=== PATIENT | male | born 1970 ===

== ENCOUNTER 2016-11-16 15:04 | Emergency (ER) | payer OTHER ==
[2016-11-16 15:11] VITALS: PULSE 100; RESP 20; TEMP 98.4; O2SAT 97
[2016-11-16 15:12] VITALS: BP 152/99
[2016-11-16] MEDS ORDERED: Lidocaine 5% Patch TD STA (15:25)
[2016-11-16] MEDS ORDERED: Lidocaine 5% Patch TD ONE (15:31)
--- NOTE | 2016-11-16 15:47 | C.PDOC ---
History Of Present Illness 46 y/o male presents to ED with complaint of lower back pain for 6 days. Patient reports heavy lifting at work. Otherwise, patient denies headache, neck pain, abdominal pain, nausea, vomiting, dysuria, hematuria, urinary or bowel incontinence, new extremity weakness, new extremity numbness, or associated symptoms. Time Seen by Provider: 11/16/16 15:19 Chief Complaint (Nursing): Back Pain History Per: Patient History/Exam Limitations: no limitations Onset/Duration Of Symptoms: Days Current Symptoms Are (Timing): Still Present Previous Symptoms: None Associated Symptoms: denies: New Weakness, New Numbness Recent travel outside of the [place]: No Past Medical History Reviewed: Historical Data, Nursing Documentation, Vital Signs Vital Signs: Last Vital Signs Temp 98.4 F 11/16/16 15:08 Pulse 100 H 11/16/16 15:08 Resp 20 11/16/16 15:08 BP 152/99 H 11/16/16 15:08 Pulse Ox 97 11/16/16 16:55 Family History: States: Unknown Family Hx - Social History Hx Alcohol Use: No Hx Substance Use: No Review Of Systems Except As Marked, All Systems Reviewed And Found Negative. Constitutional: Negative for: Fever, Chills Cardiovascular: Negative for: Chest Pain Respiratory: Negative for: Shortness of Breath Gastrointestinal: Negative for: Nausea, Vomiting Musculoskeletal: Positive for: Back Pain Skin: Negative for: Rash Neurological: Negative for: Weakness, Numbness Physical Exam - Physical Exam Appears: Non-toxic, No Acute Distress Skin: Normal Color, Warm, Dry Head: Atraumatic, Normacephalic Neck: No Midline Cervical Tenderness, No Paracervical Tenderness, Supple Chest: Symmetrical Cardiovascular: Rhythm Regular Respiratory: Normal Breath Sounds, No Rales, No Rhonchi, No Wheezing Gastrointestinal/Abdominal: Soft, No Tenderness Back: No Vertebral Tenderness, Muscle Spasm (right), Paraspinal Tenderness ( lumbar) Extremity: Normal ROM, Capillary Refill (< 2 sec. ) Neurological/Psych: Oriented x3, Normal Speech, Normal Cognition, Normal Motor, Normal Sensation ED Course And Treatment O2 Sat by Pulse Oximetry: 97 Pulse Ox Interpretation: Normal Medical Decision Making Medical Decision Makin46 y/o male with lower back pain s/p heavy lifting at work. Treated with Flexeril, Lidoderm patch, and Motrin. On reassessment, patient is in no acute distress, with improvement of back pain. Patient has no bony tenderness, extremity numbness or weakness, or abdominal pain. Patient is ambulatory in the emergency department without difficulty. Patient was advised to follow up with PMD/clinic in 1-2 days. Disposition Counseled Patient/Family Regarding: Need For Followup, Rx Given - Disposition Disposition: HOME/ ROUTINE Disposition Time: 15:46 Condition: STABLE Additional Instructions: Vaya a dos santos mdico o la clnica en 2-5 painter sin falta, para mas evaluacin. Malcom los medicamentos rhona indicado. Volver a la anna de emergencia en cualquier momento si los sntomas persisten o empeoran. 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 - Scribe Statement The provider has reviewed the documentation as recorded by the Simona Carnes Provider Scribe Attestation: All medical record entries made by the Rodolfoibcali were at my direction and personally dictated by me. I have reviewed the chart and agree that the record accurately reflects my personal performance of the history, physical exam, medical decision making, and the department course for this patient. I have also personally directed, reviewed, and agree with the discharge instructions and disposition.
== END 2016-11-16 16:02 | disposition home or self-care (01) ==
LOC: C.ER 15:04
DX: S39.012A Strain of muscle, fascia and tendon of lower back, initial encounter (principal); X50.0XXA Overexertion from strenuous movement or load, initial encounter; Y93.89 Activity, other specified; Y92.89 Other specified places as the place of occurrence of the external cause